=== PATIENT | female | born 1940 | race Asian ===

== ENCOUNTER → 2017-08-13 | Outpatient (CLI) | payer OTHER | LOC: BMCIMAGING 14:09 | PROVIDERS: ATTEND Orthopaedic Surgery | DX: M17.0 Bilateral primary osteoarthritis of knee (principal); M25.461 Effusion, right knee; M25.462 Effusion, left knee ==

== ENCOUNTER 2017-09-22 22:17 | Emergency (ER) | payer OTHER ==
[2017-09-22] MEDS ORDERED: OXYMETAZOLINE 30 ML NASAL SPRAY EACHNARE ONE (22:37)
[2017-09-22] MEDS ORDERED: SILVER NITRATE APPLICATOR 1 APPL TP ONE ×2 (22:37→22:41)
[2017-09-22] MEDS ORDERED: LET GEL TOPICAL 1 EA SYR TP ONE ×2 (22:37→22:41)
--- NOTE | 2017-09-22 23:00 | EDPHY ---
H & P Time Seen by Provider: 09/22/17 22:30 HPI/ROS: CHIEF COMPLAINT: Epistaxis HISTORY OF PRESENT ILLNESS: 77-year-old female history of nighttime nasal cannula oxygen use complaining of intermittent epistaxis, right-sided, since this evening. No dizziness. No syncope or near syncope. No chest pain. No digital trauma. No headache. No anticoagulant use. PHYSICAL EXAM (Prior to examination, patient consented to physical exam, hands were washed and my usual and customary physical exam procedures followed) 1) GENERAL: Well-developed, well-nourished, alert and oriented. Appears to be in no acute distress. 2) HEAD: Normocephalic 3) HEENT: sclera anicteric . Active bleeding right anterior nostril. Left nostril is clear. Oropharynx is clear. 4) LUNGS: Breathing comfortably. Smoking Status: Former smoker Constitutional: Initial Vital Signs Temperature (C) 36.4 C 09/22/17 22:21 Heart Rate 93 09/22/17 22:21 Respiratory Rate 18 09/22/17 22:21 Blood Pressure 161/91 H 09/22/17 22:21 O2 Sat (%) 88 L 09/22/17 22:21 O2 Delivery Mode Room Air Allergies/Adverse Reactions: No Known Allergies Allergy (Verified 09/22/17 22:24) Home Medications: Medication Instructions Recorded Pantoprazole Sodium 08/30/14 Synthroid 08/30/14 buPROPion 08/30/14 Amlodipine Besylate 09/22/17 Unk Resp Inh 09/22/17 MDM/Departure - MDM Procedures: Procedure: Epistaxis control. Indication: nosebleed not controlled by direct pressure. Risks, benefits, alternatives discussed with patient and consent obtained. The right nares was anesthetized with LAT. The anterior epistaxis was identified. The patient was treated with silver nitrate cautery. Following the procedure the patient was re-examined and the bleeding was well controlled. The patient tolerated the procedure well. The procedure was performed by myself. At discharge the patient's nose is hemostatic. Medications Given: Discontinued Medications Oxymetazoline HCl (Afrin Nasal [place]) 2 sprays EACHNARE EDNOW ONE Stop: 09/22/17 22:38 Last Admin: 09/22/17 22:57 Dose: 2 spray Tetracaine/Epinephrine/Lidocaine (Let Gel Topical) 2 ea TP EDNOW ONE Stop: 09/22/17 22:38 Last Admin: 09/22/17 22:58 Dose: 2 ea ED Course/Re-evaluation: Re-evaluation with serial exams. Most recent exam at 12:05 a.m. she is hemostatic. Plan will be discharge. Care of patient under supervision of secondary supervising physician Dr Manning . - Depart Disposition: Home, Routine, Self-Care Clinical Impression: Right anterior epistaxis Condition: Good Instructions: Nosebleed (ED) Referrals: Jonathan May MD [Medical Doctor] - 1 day without fail
[2017-09-23 00:44] VITALS: BP 119/76; PULSE 80; RESP 16; TEMP 97.3; O2SAT 91
== END 2017-09-23 00:43 | disposition home or self-care (01) ==
DX: R04.0 Epistaxis (principal); Z87.891 Personal history of nicotine dependence